=== PATIENT | female | born 1975 | race Caucasian/White ===

== ENCOUNTER 2017-12-03 08:04 | Inpatient (IN) | payer OTHER ==
--- NOTE | 2017-12-03 10:29 | History and Physical Report ---
History of Present Illness Date of examination: 12/03/17 Date of admission: 12/03/17 08:04 Chief complaint: Presents for a scheduled postdates induction History of present illness: Uncomplicated course at [facility] Past History Past Medical History: no pertinent history Past Surgical History: no surgical history Family/Genetic History: none Social history: no significant social history - Obstetrical History Expected Date of Delivery: 11/29/17 Actual Gestation: 40 Week(s) 4 Day(s) : 5 Para: 3 Hx # Term Pregnancies: 3 Spontaneous Abortions: 1 Number of Living Children: 3 #1 Infant Gender: Female year: 2,[birth year] Birthweight: 2.892 kg Method of Delivery: Vaginal Gestational age at delivery: 40 Complications: none #2 Gender: Male year: 2,[birth year] Birthweight: 3.374 kg Method of Delivery: Vaginal Gestational age at delivery: 40 Complications: none #3 Gender: Male year: 2,014 Birthweight: 3.374 kg Method of Delivery: Vaginal Gestational age at delivery: 40 Complications: none Medications and Allergies Allergies Allergy/AdvReac Type Severity Reaction Status Date / Time No Known Allergies Allergy Verified 12/03/17 09:28 Home Medications Medication Instructions Recorded Confirmed Last Taken Type Pnv95/Ferrous Fumarate/FA 1 tab PO DAILY 11/14/13 12/03/17 12/02/17 09:00 History [ Vitamins] HYDROcodone/APAP 5-325 [[place] 2 each PO Q6H PRN #30 tablet 11/15/13 12/03/17 Unknown Rx 5-325 mg TAB] Ibuprofen [Motrin 600 MG tab] 600 mg PO Q6H #30 tablet 11/15/13 12/03/17 Unknown Rx Review of Systems All systems: negative - Vital Signs Vital signs: Vital Signs Temp Resp 98.2 F 16 12/03/17 08:39 12/03/17 08:39 Temp Pulse Resp BP Pulse Ox 98.2 F 83 16 111/63 93 12/03/17 08:39 12/03/17 09:00 12/03/17 08:39 12/03/17 08:43 12/03/17 09:00 - Physical Exam Breasts: Positive: normal Cardiovascular: Regular rate Lungs: Positive: Clear to auscultation, Normal air movement Abdomen: Positive: normal appearance, soft, normal bowel sounds Genitourinary (Female): Positive: normal external genitalia, normal perenium Vagina: Positive: normal moisture Uterus: Positive: enlarged Anus/Rectum: Positive: normal perianal skin - Obstetrical FHR: category 1 Uterine Contraction Monitor Mode: External Cervical Dilatation: 1 (intact) Cervical Effacement Percentage: 60 station: -3 Uterine Contraction Pattern: Absent Uterine Tone Measurement Phase: Resting Uterine Contraction Intensity: Mild Results All other labs normal. Assessment and Plan A: IUP @ 40 4/7 Weeks Category I Tracing AMA GBS Positive P: Admit to L&D per Routine Orders Cook's Cervical Ripening Balloon Low-Dose Pitocin GBS Prophylaxis
[2017-12-03] MEDS: LACTATED RINGERS 1,000 ML IV SCH ×2 (10:57→18:48)
[2017-12-03] MEDS ORDERED: NARCAN 0.4 MG/1 ML IV PRN (11:00)
[2017-12-03] MEDS ORDERED: POLYCILLIN/NS 2 GM/100 ML 2 GM/100 ML BAG IV NR (11:00)
[2017-12-03] MEDS ORDERED: BRETHINE SUB-Q PRN (11:00)
[2017-12-03] MEDS ORDERED: MINERAL OIL PO PRN (11:00)
[2017-12-03] MEDS ORDERED: ZOFRAN IV PRN ×2 (11:00→23:39)
[2017-12-03] MEDS ORDERED: STADOL IV PRN (11:00)
[2017-12-03] MEDS ORDERED: PITOCin/NS 30 UNIT/500ML 30 UNITS/500 ML BAG IV SCH (11:00)
[2017-12-03] MEDS ORDERED: PITOCin/NS 20 UNIT/1000ML DRIP 20 UNITS/1,000 ML BAG IV SCH (11:00)
[2017-12-03] MEDS ORDERED: BRETHINE IVP PRN (11:00)
[2017-12-03] MEDS ORDERED: XYLOCAINE 2% INFILTRATI NR (11:00)
[2017-12-03] MEDS ORDERED: ePHEDrine SULFATE IV PRN (11:00)
[2017-12-03 11:44] LABS: Hematocrit 34.6 % (30.3-42.9); Hemoglobin 11.5 gm/dl (10.1-14.3); Mean Corpuscular HGB Conc 33 % (30-34); Mean Corpuscular Hemoglobin 31 pg (28-32); Mean Corpuscular Volume 93 fl (79-97); Platelet Count 170 K/mm3 (140-440); Red Blood Count 3.71 M/mm3 (3.65-5.03); Red Cell Distribution Width 14.4 % (13.2-15.2)
[2017-12-03] MEDS: AMPICILLIN/NS 1 GM/50 ML 1 GM/50 ML BAG IV SCH ×3 (15:02→22:58)
--- NOTE | 2017-12-03 19:32 | Progress Note ---
Assessment and Plan A: IUP @ 40 4/7 Weeks Category I Tracing AMA GBS Positive P: Pitocin Augmentation GBS Prophylaxis Anticiapte Dr. Juanjo Grove MD to assume care of pt. Subjective - Subjective Date of service: 12/03/17 Patient reports: movement normal, contractions, no loss of fluid Objective - Vital Signs Vital Signs: Vital Signs - 12hr 12/03/17 12/03/17 12/03/17 08:39 08:43 08:48 Temperature 98.2 F Pulse Rate 79 78 Respiratory 16 Rate Blood Pressure 111/63 O2 Sat by Pulse 96 96 Oximetry 12/03/17 12/03/17 12/03/17 08:53 08:59 09:00 Temperature Pulse Rate 85 83 83 Respiratory Rate Blood Pressure O2 Sat by Pulse 96 95 93 Oximetry 12/03/17 12/03/17 12/03/17 11:00 11:30 12:01 Temperature 98.2 F Pulse Rate 71 68 69 Respiratory 18 Rate Blood Pressure 109/64 100/55 107/62 O2 Sat by Pulse Oximetry 12/03/17 12/03/17 12/03/17 12:30 13:01 13:30 Temperature Pulse Rate 68 72 67 Respiratory Rate Blood Pressure 107/58 112/58 106/58 O2 Sat by Pulse Oximetry 12/03/17 12/03/17 12/03/17 14:01 14:30 15:00 Temperature Pulse Rate 68 72 69 Respiratory Rate Blood Pressure 104/58 108/56 106/57 O2 Sat by Pulse Oximetry 12/03/17 12/03/17 12/03/17 15:31 16:00 16:30 Temperature Pulse Rate 72 72 71 Respiratory Rate Blood Pressure 117/68 100/56 106/63 O2 Sat by Pulse Oximetry 12/03/17 12/03/17 12/03/17 16:52 18:44 18:57 Temperature 97.6 F 98.8 F Pulse Rate 71 Respiratory 18 16 Rate Blood Pressure 118/64 O2 Sat by Pulse Oximetry - Exam Cardiovascular: Regular rate Lungs: Normal air movement Abdomen: Present: soft, other (gravid; S=D). Absent: distention Vulva: both: normal FHR: auscultation normal, category 1 Uterine Contraction Monitor Mode: External Cervical Dilatation: 6 (Cooks catheter removed, normal bloody show noted. ) Cervical Effacement Percentage: 70 station: -3 Uterine Contraction Frequency (min): 2-5 Uterine Contraction Pattern: Regular Uterine Tone Measurement Phase: Resting Uterine Contraction Intensity: Moderate Extremities: normal Deep Tendon Reflex Grade: Normal +2 - Labs Labs: Laboratory Results - last 24 hr 12/03/17 12/03/17 09:08 09:08 WBC 6.6 RBC 3.71 Hgb 11.5 Hct 34.6 MCV 93 MCH 31 MCHC 33 RDW 14.4 Plt Count 170 Blood Type O POSITIVE Antibody Screen Negative
[2017-12-03] MEDS ORDERED: SUBLIMAZE IV NR (21:19)
--- NOTE | 2017-12-03 23:38 | Procedure Note ---
OB Delivery Note - Delivery Date of Delivery: 12/03/17 Surgeon: LONDON MARTINI Estimated blood loss: 100cc - Vaginal Delivery presentation: vertex Delivery position: OA Intrapartum events: none Delivery induction: oxytocin Delivery augmentation: rupture of membranes, pitocin Delivery monitor: external FHT, external uterine Route of delivery: Delivery placenta: spontaneous Delivery cord: 3 umbilical vessels Episiotomy: none Delivery laceration: none Anesthesia: intravenous Delivery comments: delivered OA and placed on Mom's chest for [id number] bonding and delayed cord clamping, cut by Dad - A at 1 minute: 8 at 5 minutes: 9 Infant Gender: Female (3477gms)
[2017-12-03] MEDS ORDERED: DULCOLAX PR PRN (23:39)
[2017-12-03] MEDS ORDERED: MILK OF MAGNESIA PO PRN (23:39)
[2017-12-03] MEDS ORDERED: NORCO 5/325 PO PRN (23:39)
[2017-12-03] MEDS ORDERED: PHENERGAN PR PRN (23:39)
[2017-12-03] MEDS ORDERED: LANSINOH TP PRN (23:39)
[2017-12-03] MEDS ORDERED: TUCKS PAD TP PRN (23:39)
[2017-12-03] MEDS ORDERED: TYLENOL PO PRN (23:39)
[2017-12-03] MEDS ORDERED: BENADRYL PO PRN (23:39)
[2017-12-03] MEDS ORDERED: PHENERGAN PO PRN (23:39)
[2017-12-03] MEDS ORDERED: SENOKOT S PO SCH (23:45)
[2017-12-03] MEDS ORDERED: SODIUM CHLORIDE FLUSH SYRINGE 10 ML IV NR (23:45)
[2017-12-03] MEDS: PITOCin/NS 20 UNIT/1000ML DRIP 20 UNITS/1,000 ML BAG IV SCH (23:55)
[2017-12-04] MEDS: PITOCin/NS 20 UNIT/1000ML DRIP 20 UNITS/1,000 ML BAG IV SCH (01:35)
[2017-12-04] MEDS: MOTRIN PO SCH ×4 (02:30→23:59)
[2017-12-04] MEDS ORDERED: BOOSTRIX IM ONE (06:00)
--- NOTE | 2017-12-04 09:18 | Progress Note ---
Assessment and Plan - Patient Problems (1) Status post normal vaginal delivery Current Visit: Yes Status: Acute Plan to address problem: PPD 1 - stable Continue routine PP orders Discharge to home 12/05/17 Follow-up at [facility] in 6 weeks for PP exam Subjective - Subjective Date of service: 12/04/17 Principal diagnosis: S/P Normal Spontaneous Vaginal Delivery, PPD 1 Patient reports: appetite normal, voiding normally, pain well controlled, ambulating normally, no bowel movement : doing well, other (breast and bottle feeding) Objective - Vital Signs Latest vital signs: Vital Signs Temp Pulse Resp BP Pulse Ox 12/04/17 03:06 98.6 F 85 20 126/51 96 12/04/17 01:41 82 121/60 12/04/17 01:26 79 119/58 12/04/17 01:11 82 123/60 12/04/17 00:56 84 122/63 12/04/17 00:41 99 F 86 118/70 12/04/17 00:26 81 124/67 12/04/17 00:11 82 126/65 12/03/17 23:56 83 124/64 12/03/17 23:41 88 126/69 12/03/17 23:38 76 138/74 12/03/17 23:32 98.4 F 12/03/17 23:00 98.4 F 12/03/17 22:43 74 127/74 12/03/17 21:00 98.5 F 12/03/17 20:44 77 116/58 12/03/17 19:41 75 129/70 12/03/17 18:57 98.8 F 16 12/03/17 18:44 71 118/64 12/03/17 16:52 97.6 F 18 12/03/17 16:30 71 106/63 12/03/17 16:00 72 100/56 12/03/17 15:31 72 117/68 12/03/17 15:00 69 106/57 12/03/17 14:30 72 108/56 12/03/17 14:01 68 104/58 12/03/17 13:30 67 106/58 12/03/17 13:01 72 112/58 12/03/17 12:30 68 107/58 12/03/17 12:01 69 107/62 12/03/17 11:30 68 100/55 12/03/17 11:00 98.2 F 71 18 109/64 Intake and Output 12/03/17 12/04/17 12/04/17 23:59 07:59 15:59 Intake Total 1031.25 416.667 Output Total 500 Balance 1031.25 -83.333 Intake: IV 1031.25 416.667 AMPICILLIN/NS 1 GM/50 ML 50 1 gm In 50 ml @ 100 mls/ hr IV Q4H [facility] Rx#: [id number] Lactated Ringers 1,000 ml 981.25 @ 125 mls/hr IV DIRECT [facility] Rx#:[id number] PITOCin/NS 20 UNIT/1000ML 416.667 DRIP 20 units In 1,000 ml @ 250 mls/hr IV DIRECT ALPHONSO Rx#:[id number] Output: Urine 500 Void 500 Other: Total, Output Amount 500 # Voids Void 1 Estimated Blood Loss 100 - Exam Abdomen: Present: normal appearance, soft Vulva: both: normal Uterus: Present: normal, firm, fundal height at umbilicus Extremities: Present: normal
--- NOTE | 2017-12-04 09:21 | Discharge Summary ---
Providers - Providers Date of Admission: 12/03/17 08:04 Date of discharge: 12/05/17 Attending physician: THAD CARRANZA MD Primary care physician: THAD CARRANZA MD Hospitalization Reason for admission: induction of labor, IUP at term Delivery: Episiotomy: none Laceration: none Other procedures: none complications: none Discharge diagnosis: IUP at term delivered [place] baby: female Hospital course: Uncomplicated Condition at discharge: Stable Disposition: [place]-01 TO HOME OR SELFCARE - Discharge Diagnoses (1) Status post normal vaginal delivery Status: Acute Plan - Provider Discharge Summary Activity: routine, no sex for 6 weeks, no heavy lifting 4 weeks, no strenuous exercise Diet: routine Instructions: routine Additional instructions: [] Smoking cessation referral if applicable(refer to patient education folder for contact #) [] Refer to [facility]'s [facility] Booklet Call your doctor immediately for: * Fever > 100.5 * Heavy vaginal bleeding ( >1 pad per hour) * Severe persistent headache * Shortness of breath * Reddened, hot, painful area to leg or breast * Drainage or odor from incision. * Keep incision clean and dry at all times and follow doctor's instructions regarding bathing/showering - Follow up plan Follow up: THAD CARRANZA MD [Primary Care Provider] - 6 Weeks (Follow up at [facility] in 6 weeks for exam)
[2017-12-04] MEDS ORDERED: M-M-R II VACCINE SUB-Q ONE (10:00)
[2017-12-04] MEDS: PRENATAL VITAMIN PO SCH (10:18)
[2017-12-04] MEDS: FEOSOL PO SCH ×2 (10:18→22:22)
[2017-12-04] MEDS: COLACE PO SCH ×2 (10:18→22:22)
[2017-12-04 13:07] LABS: Hematocrit 33.9 % (30.3-42.9); Hemoglobin 11.4 gm/dl (10.1-14.3)
[2017-12-05] MEDS: MOTRIN PO SCH (06:04)
[2017-12-05] MEDS: FEOSOL PO SCH (08:28)
[2017-12-05] MEDS: PRENATAL VITAMIN PO SCH (08:28)
[2017-12-05] MEDS: COLACE PO SCH (08:28)
[2017-12-05 16:37] VITALS: BP 119/71
== END 2017-12-05 17:03 | disposition home or self-care (01) | DRG 775 ==
LOC: LD 08:04 → OB 12-04 03:12
PROVIDERS: ADMIT Obstetrics & Gynecology; ATTEND Obstetrics & Gynecology
PROC: 10E0XZZ Delivery of Products of Conception, External Approach (ICD-10-PCS; 2017-12-03)
PROC: 3E033VJ Introduction of Other Hormone into Peripheral Vein, Percutaneous Approach (ICD-10-PCS; 2017-12-03)
PROC: 3E0234Z Introduction of Serum, Toxoid and Vaccine into Muscle, Percutaneous Approach (ICD-10-PCS; principal; 2017-12-04)
DX: O48.0 Post-term pregnancy (principal); O99.824 Streptococcus B carrier state complicating childbirth; Z3A.40 40 weeks gestation of pregnancy; Z37.0 Single live birth; Z23 Encounter for immunization
CPT/HCPCS: 36415; 85014; 85018; 85027; 86592; 86850; 86900; 86901; 90471; 90715; J0290; J0595; J2590; J3010; J7120